=== PATIENT | male | born 1945 | race Caucasian/White ===

== ENCOUNTER 2017-02-04 14:20 | Emergency (ER) | payer MEDICARE, BC ==
[2017-02-04 14:52] VITALS: BP 175/80
[2017-02-04] MEDS ORDERED: Bacitracin Oint 1 GM U/D Packet TOP ONE (15:06)
--- NOTE | 2017-02-04 15:17 | EDM.PDOC ---
ED HPI GENERAL MEDICAL PROBLEM - General Chief Complaint: Laceration Stated Complaint: FISHHOOK LT MIDDLE FINGER Time Seen by Provider: 02/04/17 15:00 Source of Information: Reports: Patient History Limitations: Reports: No Limitations - History of Present Illness INITIAL COMMENTS - FREE TEXT/NARRATIVE: 71-year-old male with a fish hook embedded into the dorsal aspect of the middle finger on the left hand. Tetanus is current. Onset: Sudden Duration: Hour(s): (Within the last hour) Severity: Mild - Related Data Allergies Allergy/AdvReac Type Severity Reaction Status Date / Time tramadol Allergy Cannot Verified 02/04/17 14:52 Remember Home Meds: Home Meds NK [No Known Home Meds] 11/29/15 [History] Past Medical History HEENT History: Reports: Hard of Hearing, Impaired Vision Respiratory History: Reports: Pneumonia, Recurrent Gastrointestinal History: Reports: Colon Polyp, Hemorrhoids Genitourinary History: Reports: UTI, Recurrent Musculoskeletal History: Reports: Fracture Neurological History: Reports: None - Infectious Disease History Infectious Disease History: Reports: Measles, Mumps - Past Surgical History Neurological Surgical History: Reports: Discectomy Other Neurological Surgeries/Procedures: low back Musculoskeletal Surgical History: Reports: Carpal Tunnel Social & Family History - Family History Family Medical History: Noncontributory - Tobacco Use Smoking Status *Q: Never Smoker Years of Tobacco use: 15 Packs/Tins Daily: 1.0 Used Tobacco, but Quit: Yes Month Tobacco Last Used: 02/1973 Second Hand Smoke Exposure: No - Caffeine Use Caffeine Use: Reports: Coffee - Alcohol Use Days Per Week of Alcohol Use: 7 Number of Drinks Per Day: 3 Total Drinks Per Week: 21 - Recreational Drug Use Recreational Drug Use: No ED ROS GENERAL - Review of Systems Review Of Systems: See Below Constitutional: Denies: Fever Respiratory: Denies: Shortness of Breath Cardiovascular: Denies: Lightheadedness GI/Abdominal: Denies: Abdominal Pain Neurological: Reports: No Symptoms Psychiatric: Reports: No Symptoms ED EXAM, SKIN/RASH Exam: See Below Exam Limited By: No Limitations General Appearance: Alert, No Apparent Distress Respiratory/Chest: No Respiratory Distress Extremities: Other (Exam is otherwise limited to the left hand. Patient has one brenda embedded into the dorsal aspect of the middle finger over the PIP joint) Course - Vital Signs Last Recorded V/S: Last Vital Signs Temp 97.0 F 02/04/17 14:50 Pulse 82 02/04/17 14:50 Resp 16 02/04/17 14:50 BP 175/80 H 02/04/17 14:50 Pulse Ox 94 L 02/04/17 14:50 - Orders/Labs/Meds Meds: Medications Discontinued Medications Generic Name Dose Route Start Last Admin Trade Name Karmen PRN Reason Stop Dose Admin Bacitracin 1 dose 02/04/17 15:06 02/04/17 15:25 Bacitracin Oint 1 Gm TOP 02/04/17 15:07 1 dose ONETIME ONE Administration Lidocaine HCl 5 ml 02/04/17 14:50 02/04/17 15:00 Xylocaine-Mpf 1% INJECT 02/04/17 14:51 5 ml ONETIME ONE Administration - Re-Assessments/Exams Free Text/Narrative Re-Assessment/Exam: 02/04/17 15:17 There was sterilized and anesthetized with 1% lidocaine. The distal hook was already through the skin, it was clipped and backed through without difficulty. Topical bacitracin and a Band-Aid was applied. Departure - Departure Time of Disposition: 15:31 Disposition: Home, Self-Care 01 Condition: Good Clinical Impression: Fish hook injury of finger of left hand Qualifiers: Encounter type: initial encounter Qualified Code(s): S69.92XA - Unspecified injury of left wrist, hand and finger(s), initial encounter - Discharge Information Instructions: Puncture Wound, [id number], Laceration Care, Adult, Easy-to- Read Referrals: Bradly Palmer MD [Primary Care Provider] - Forms: ED Department Discharge Care Plan Goals: keep wound covered and clean while healing. Return if concerns of infection or not healing satisfactorily.
== END 2017-02-04 15:32 | disposition home or self-care (01) ==
LOC: JP.ED 14:20
DX: S60.453A Superficial foreign body of left middle finger, initial encounter (principal); Z88.5 Allergy status to narcotic agent; Z87.891 Personal history of nicotine dependence; W45.8XXA Other foreign body or object entering through skin, initial encounter
CPT/HCPCS: 99283

== ENCOUNTER 2021-12-28 05:59 | Day surgery (SDC) | payer BC, MEDICARE ==
[2021-12-28] MEDS ORDERED: Sodium Chloride 0.9% 10 ML Syringe FLUSH PRN (06:30)
[2021-12-28 08:12] VITALS: BP 171/89; PULSE 50
== END 2021-12-28 08:20 | disposition home or self-care (01) ==
LOC: JP.SDS 05:59
PROVIDERS: ATTEND Ophthalmology
DX: H25.11 Age-related nuclear cataract, right eye (principal); Z88.5 Allergy status to narcotic agent
CPT/HCPCS: 66984; J3490

== ENCOUNTER 2022-01-25 06:01 | Day surgery (SDC) | payer MEDICARE ==
[2022-01-25] MEDS ORDERED: Sodium Chloride 0.9% 10 ML Syringe FLUSH PRN (07:00)
[2022-01-25 08:23] VITALS: BP 167/81; PULSE 60
== END 2022-01-25 08:22 | disposition home or self-care (01) ==
LOC: JP.SDS 06:01
PROVIDERS: ATTEND Ophthalmology
DX: H26.9 Unspecified cataract (principal); K21.9 Gastro-esophageal reflux disease without esophagitis; M81.0 Age-related osteoporosis without current pathological fracture; E66.9 Obesity, unspecified; Z88.5 Allergy status to narcotic agent; Z79.899 Other long term (current) drug therapy; Z68.28 Body mass index [BMI] 28.0-28.9, adult
CPT/HCPCS: 66984; J3490; V2632